=== PATIENT | female | born 1950 | race Caucasian/White ===

== ENCOUNTER 2022-05-22 12:20 | Outpatient (CLI) | payer MEDICARE, BC | END 2022-05-22 12:21 | disposition home or self-care (01) | LOC: TBSIIMAG 12:20 | PROVIDERS: ATTEND Anesthesiology Pain Medicine | DX: M47.22 Other spondylosis with radiculopathy, cervical region (principal); M47.23 Other spondylosis with radiculopathy, cervicothoracic region; M48.02 Spinal stenosis, cervical region | CPT/HCPCS: 72141 ==

== ENCOUNTER 2022-07-03 12:23 | Outpatient (CLI) | payer MEDICARE, BC | END 2022-07-03 12:24 | disposition home or self-care (01) | LOC: TBSIIMAG 12:23 | PROVIDERS: ATTEND Anesthesiology Pain Medicine | DX: M51.16 Intervertebral disc disorders with radiculopathy, lumbar region (principal); M51.34 Other intervertebral disc degeneration, thoracic region; M48.04 Spinal stenosis, thoracic region; M47.894 Other spondylosis, thoracic region; M47.814 Spondylosis without myelopathy or radiculopathy, thoracic region; M47.815 Spondylosis without myelopathy or radiculopathy, thoracolumbar region; M48.061 Spinal stenosis, lumbar region without neurogenic claudication; M47.26 Other spondylosis with radiculopathy, lumbar region; M43.16 Spondylolisthesis, lumbar region; M47.897 Other spondylosis, lumbosacral region; M48.07 Spinal stenosis, lumbosacral region | CPT/HCPCS: 72148 ==

== ENCOUNTER 2022-08-18 15:10 | Outpatient (CLI) | payer MEDICARE, BC | END 2022-08-18 15:11 | disposition home or self-care (01) | LOC: TBSIIMAG 15:10 | PROVIDERS: ATTEND Neurological Surgery | DX: M43.16 Spondylolisthesis, lumbar region (principal) | CPT/HCPCS: 72110 ==

== ENCOUNTER 2022-09-09 13:56 | Outpatient (CLI) | payer MEDICARE, BC ==
[2022-09-09 15:06] LABS: Hemoglobin 11.1 g/dL (12.0-15.5); Mean Corpuscular HGB CONC 33.5 g/dL (32.0-36.0); Mean Corpuscular Hemoglobin 28.8 pg (27.0-33.0); Mean Platelet Volume 9.1 fl (7.4-10.4); Platelet Count 378 10x3/uL (150-450); RBC Distribution Width 13.8 % (11.5-14.5); Red Blood Cell (RBC) Count 3.85 10x6/uL (3.90-5.03); White Blood Cell (WBC) Count 8.1 10x3/uL (3.5-10.5)
[2022-09-09 15:28] LABS: Anion Gap 16 mmol/L (10-20); BUN (Urea Nitrogen) 19 mg/dL (9.8-20.1); Calc. Creatinine Clearance 0 mL/min (70-130); Carbon Dioxide 24 mmol/L (23-31); Chloride 99 mmol/L (98-107); Estimated GFR 75; Glucose 99 mg/dL (83-110); Sodium 135 mmol/L (136-145)
== END 2022-09-09 13:57 | disposition home or self-care (01) ==
LOC: LABBT 13:56
PROVIDERS: ATTEND Neurological Surgery
DX: Z01.818 Encounter for other preprocedural examination (principal); M43.16 Spondylolisthesis, lumbar region; M48.061 Spinal stenosis, lumbar region without neurogenic claudication
CPT/HCPCS: 80048; 85027; 93005; 93010

== ENCOUNTER 2022-09-14 05:42 | Day surgery (SDC) | payer MEDICARE, BC ==
[2022-09-10 13:10] VITALS: BMI 36.8
[2022-09-14] MEDS ORDERED: Dexmedetomidine 200 MCG/2 ML VIAL ONE (06:37)
[2022-09-14] MEDS ORDERED: Magnesium 5 GM/10 ML VIAL ONE (06:37)
[2022-09-14] MEDS ORDERED: Bupivacaine HCl 0.5%/Epinephrine 1:200,000/PF 30 ml Vial ONE (06:39)
[2022-09-14] MEDS ORDERED: Thrombin 5000 UNITS/5 ML VIAL ONE (06:39)
[2022-09-14] MEDS ORDERED: CEFAZOLIN 2 GM VIAL ONE ×2 (06:58→12:30)
[2022-09-14] MEDS ORDERED: Sodium Chloride 0.9% 100 ML ONE ×2 (06:58→12:30)
[2022-09-14] MEDS ORDERED: Famotidine/PF 20 mg/2ml Vial ONE (07:03)
[2022-09-14] MEDS ORDERED: fentaNYL PF 100 MCG/2 ML SYRINGE ONE (07:12)
[2022-09-14] MEDS ORDERED: PROPOFOL 200 MG/20 ML VIAL ONE (07:18)
[2022-09-14] MEDS ORDERED: Lidocaine 1% PF 5 ML VIAL ONE (07:18)
[2022-09-14] MEDS ORDERED: NEOSTIGMINE 3 MG/3 ML SYR 3 MG/3 ML SYRINGE ONE (07:18)
[2022-09-14] MEDS ORDERED: Rocuronium Bromide 10 MG/ML (10ML VIAL) ONE (07:18)
[2022-09-14] MEDS ORDERED: Phenylephrine 10 MG/ML VIAL ONE (07:18)
[2022-09-14] MEDS ORDERED: GLYCOPYRROLATE/PF 0.2 MG/ML VIAL ONE (07:18)
[2022-09-14] MEDS ORDERED: Fentanyl 250 MCG/5 ML VIAL ONE (10:10)
[2022-09-14] MEDS ORDERED: HYDROmorphone 0.5 MG/0.5 ML SYRINGE ONE ×2 (10:13→10:34)
[2022-09-14] MEDS ORDERED: HYDROcodone/Acetaminophen 5/325 mg Tablet ONE (13:31)
[2022-09-14] MEDS ORDERED: Dexamethasone 4 mg/ml Vial ONE (14:04)
== END 2022-09-14 14:45 | disposition home or self-care (01) ==
LOC: SDC 05:42
PROVIDERS: ATTEND Neurological Surgery
PROC: 0SG0071 Fusion of Lumbar Vertebral Joint with Autologous Tissue Substitute, Posterior Approach, Posterior Column, Open Approach (ICD-10-PCS; principal; 2022-09-14)
DX: M43.16 Spondylolisthesis, lumbar region (principal); M54.16 Radiculopathy, lumbar region; M48.062 Spinal stenosis, lumbar region with neurogenic claudication; Z79.1 Long term (current) use of non-steroidal anti-inflammatories (NSAID); Z79.82 Long term (current) use of aspirin; Z79.890 Hormone replacement therapy; Z79.899 Other long term (current) drug therapy; Z91.040 Latex allergy status
CPT/HCPCS: C1713; C1768; C1776; J1100; J1170; J2370; J2704; J3010; J3475; J3490; S0028

== ENCOUNTER 2023-04-20 09:59 | Outpatient (CLI) | payer MEDICARE, BC | END 2023-04-20 10:00 | disposition home or self-care (01) | LOC: NM 09:59 | PROVIDERS: ATTEND Specialist | DX: T84.84XA Pain due to internal orthopedic prosthetic devices, implants and grafts, initial encounter (principal); M17.12 Unilateral primary osteoarthritis, left knee; R94.8 Abnormal results of function studies of other organs and systems; Z96.652 Presence of left artificial knee joint | CPT/HCPCS: 78315; A9503 ==